=== PATIENT | female | born 1990 | race Caucasian/White ===

== ENCOUNTER 2023-09-06 16:52 | Emergency (ER) | payer SELFPAY | END 2023-09-06 17:55 | disposition home or self-care (01) | LOC: CSHERS 16:52 | DX: S02.2XXA Fracture of nasal bones, initial encounter for closed fracture (principal); W51.XXXA Accidental striking against or bumped into by another person, initial encounter; Y93.67 Activity, basketball | CPT/HCPCS: 99283 ==